=== PATIENT | male | born 1950 | race Caucasian/White ===

== ENCOUNTER 2019-04-12 14:47 | Emergency (ER) | payer MEDICARE, BC, SELFPAY ==
[2019-04-12 14:50] VITALS: BP 141/80; PULSE 82; RESP 18; TEMP 36.2; O2SAT 97
--- NOTE | 2019-04-12 15:06 | ED.GENADUL_ITS ---
Discharge Plan Disposition Patient Disposition: HOME Condition: Stable Discharge Details Chief Complaint: Laceration Clinical Impression: Laceration of forearm, right Primary Care Provider: None,None ED Provider: Negra Vigil Home Meds and New Rx's Prescriptions: Continued lisinopril 20 mg Tablet 20 mg PO DAILY RF: 0 aspirin [Aspir-81] 81 mg Tablet,Delayed Release (Dr/Ec) 81 mg PO DAILY RF: 0 simvastatin 20 mg Tablet 20 mg PO DAILY RF: 0 metoprolol tartrate 25 mg Tablet 25 mg PO BID RF: 0 Discharge Instructions Instructions: Laceration (ED) Additional Instructions: Keep wound clean and dry. Apply topical antibiotic ointment if any redness, swelling or pain. Follow-up with your primary care doctor in 1 week for suture removal. Return to the emergency department if you develop any worsening or new concerning symptoms. Discharge Data Discharge Date/Time-TO BE ENTERED AT DEPARTURE: 04/12/19 17:50 Discharge Physician: Negra Vigil Medical Decision Making 69-year-old male who presents with right forearm laceration sustained when he was hit from a piece of wood that shot back while using a table saw prior to arrival. There is a 9 cm V-shaped laceration that extends through the subcutaneous tissue on the right proximal volar forearm. Bleeding controlled. There is no obvious foreign body. Neurovascularly intact. X-ray obtained which was negative for foreign body or fracture. Wound was extensively irrigated and cleaned and explored and no evidence of foreign body, tendon or vessel injury. Area was locally anesthetized and #7 vi cryl 4-0 sutures were placed subcutaneously, and #11 nylon 5-0 sutures were placed through the skin. Wound was covered with bacitracin and dressing. Patient was advised on wound care and to apply topical antibiotic ointment if any signs of local infection. He was advised to follow-up with his primary care doctor for wound reevaluation this week and to return here or follow-up with his primary care doctor in 7 days for suture removal. Medical Records Medical records reviewed: Yes I reviewed the patient's medical records. Imaging Data Radiologic Study: Radiologist's impression: a RAD:XR forearm RT SYMPTOMS/DIAGNOSIS: RIGHT PROXIMAL FOREARM LACERATION, ? FX OF FOREIGN BODY RIGHT FOREARM: Two views were obtained. No fracture or foreign body is identified. HPI General Mode of arrival: ambulatory . Date/Time Provider Initiated Documentation: 04/12/19 14:53 . Limitations to Documentation: no limitations . Information obtained by: patient . HPI Narrative: Patient is a 69-year-old male presents with right forearm laceration sustained while using a table saw in which a piece of wood kicked back and cut his right proximal forearm. He denies any known foreign body. He is unsure of his last tetanus status. He denies any tingling, numbness or weakness in his hand or forearm. Related Data Home Medications Medication Instructions Recorded Confirmed aspirin [Aspir-81] 81 mg PO DAILY 04/12/19 04/12/19 lisinopril 20 mg PO DAILY 04/12/19 04/12/19 metoprolol tartrate 25 mg PO BID 04/12/19 04/12/19 simvastatin 20 mg PO DAILY 04/12/19 04/12/19 Allergies Allergy/AdvReac Type Severity Reaction Status Date / Time No Known Allergies Allergy Unverified 04/12/19 14:52 General Stated Complaint: Laceration LISSA: 3 Review of Systems Review of Systems All systems reviewed & are unremarkable except as noted in HPI and below PFSH Medical History Hypercholesteremia (Acute) Hypertension (Chronic) Surgical History H/O heart artery stent (Chronic) History of tonsillectomy (Chronic) Social History Smoking/Tobacco Use Status: Former Tobacco Use Quit Date: 08/07/75 Alcohol Intake: current Alcohol Intake frequency: 0-2 drinks per day Substance use type: does not use Do you feel safe at home: Yes Do you feel safe in your relationship?: Yes Exam Const General: cooperative, healthy appearing and no acute distress HENMT Head: normal to inspection Mouth: oral mucosae normal Eyes General: appearance normal, both eyes and all related structures Neck Neck: normal visual inspection Resp Effort & Inspection: normal respiratory effort and able to speak in complete sentences Cardio Rate: regular rate Skin General skin exam: no rashes or lesions noted Neuro General: alert, awake and oriented x3 Motor: muscle tone normal throughout Other: 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 Normal radial/median/ulnar nerve motor function. Extrem Elbow/forearm/wrist images: 1. 9 cm V-shaped laceration on right proximal volar forearm which extends to subcutaneous tissue. Mild active oozing. No obvious foreign body with exploration. Other: Right radial and ulnar pulses intact. Cap refill less than 2 seconds. Psych Appearance: grossly normal Affect: normal affect Course Vital Signs Temperature 97.2 F L 04/12/19 14:50 Pulse 82 04/12/19 14:50 Respiratory Rate 18 04/12/19 14:50 Blood Pressure 141/80 H 04/12/19 14:50 Pulse Oximetry 97 04/12/19 14:50 Temperature 97.2 F L 04/12/19 14:50 Temperature Source Temporal Artery Scan 04/12/19 14:50 Pulse 82 04/12/19 14:50 Respiratory Rate 18 04/12/19 14:50 Respiratory Effort Non-Labored 04/12/19 14:53 Blood Pressure 141/80 H 04/12/19 14:50 Blood Pressure Position Sitting 04/12/19 14:50 Pulse Oximetry 97 04/12/19 14:50 Oxygen Delivery Method Room Air 04/12/19 14:50 Oxygen Flow Rate 0 04/12/19 14:50 Pain Level 4 04/12/19 14:50 Procedures Laceration Laceration 1: Site: upper extremity Side (If applicable): right Size (cm): 9 Description: flap (v shaped) Depth: simple, single layer (through subcutaneous tissue) Local Anesthetic: Lidocaine 1% Amount of anesthesia used (mL): 10 Pre-repair: wound explored, irrigated extensively, deep structures intact and wound margins revised Skin layer closed with: nylon Size (cm): 5-0 Number of sutures: 11 Technique: simple, interrupted Subcutaneous layer closed with: vicryl Size: 4-0 Number of sutures: 7 Technique: simple, interrupted
--- NOTE | 2019-04-12 15:33 | DI.RAD_ITS ---
SYMPTOMS/DIAGNOSIS: RIGHT PROXIMAL FOREARM LACERATION, ? FX OF FOREIGN BODY RIGHT FOREARM: Two views were obtained. No fracture or foreign body is identified.
[2019-04-12] MEDS: Lidocaine 1% Multi-Dose 50 ML VIAL (16:40)
[2019-04-12 17:48] VITALS: BP 134/88; PULSE 63; RESP 16; O2SAT 97
== END 2019-04-12 17:50 | disposition home or self-care (01) ==
PROVIDERS: Emergency Provider Physician Assistant
DX: S51.811A Laceration without foreign body of right forearm, initial encounter (principal); W31.2XXA Contact with powered woodworking and forming machines, initial encounter; I10 Essential (primary) hypertension
CPT/HCPCS: 12034; 90471; 99283; 73090